=== PATIENT | female | born 1970 | race African-American/Black ===

== ENCOUNTER 2016-12-18 22:45 | Emergency (ER) | payer BC ==
[~2016-12-18] VITALS: Ht 147.3 cm; Wt 103.0 kg
[2016-12-18 23:30] VITALS: BP 144/64
[2016-12-18] MEDS ORDERED: BENZ100C PO (23:53)
[2016-12-18] MEDS ORDERED: PRED20TA PO (23:53)
[2016-12-18] MEDS: IPRATRPIUM/ALBUTEROL 0.5/2.5MG 3 ML NEBU. NEB ONE (23:53)
[2016-12-18] MEDS ORDERED: AZIT250T PO (23:53)
[2016-12-18] MEDS ORDERED: PROAIR HFA8.5 GM INH (23:53)
--- NOTE | 2016-12-18 23:54 | PHYS DOC ---
Past Medical History Past Medical History: Diabetes-Type II, Hypertension, Hyperthyroid Past Surgical History: Cholecystectomy, , Tubal ligation Alcohol Use: Rarely Drug Use: None Adult General Chief Complaint Chief Complaint: Congestion HPI HPI Patient is a 46 year old female presents to the emergency department stating that she's been having cough and congestion for the last 2 days with upper chest discomfort with coughing. She also states that she's been nauseated and vomiting however she states that that is been occurring after she's been coughing as well. Patient does state that she feels like she could vomited this time. Patient denies any fever, chills. Patient states that she is also been having some sinus pressure in which she used a friend's Nasacort. Patient states the sinus pressure is gone at this point in time. Patient also states that she had drunk some soup and states that she had vomited it up. Review of Systems Review of Systems Constitutional: Denies fever or chills [] Eyes: Denies change in visual acuity, redness, or eye pain [] HENT: Nasal congestion denies sore throat Respiratory: Cough denies shortness of breath Cardiovascular: No additional information not addressed in HPI [] GI: Denies abdominal pain, bloody stools or diarrhea. Patient complaint of nausea vomiting : Denies dysuria or hematuria [] Musculoskeletal: Denies back pain or joint pain [] Integument: Denies rash or skin lesions [] Neurologic: Denies headache, focal weakness or sensory changes [] Endocrine: Denies polyuria or polydipsia [] Current Medications Current Medications Current Medications Medications (Trade) Dose Ordered Sig/Amelia Start Time Stop Time Status Last Admin Dose Admin Albuterol/ Ipratropium (Duoneb) 3 ml 1X ONCE 12/19/16 00:00 12/19/16 00:01 DC 12/18/16 23:53 3 ML Ibuprofen (Motrin) 800 mg 1X ONCE 12/19/16 00:15 12/19/16 00:16 DC Ondansetron HCl (Zofran Odt) 4 mg 1X ONCE 12/19/16 00:15 12/19/16 00:16 DC Allergies Allergies Allergies Coded Allergies Type Severity Reaction Last Updated Verified hydromorphone Allergy Intermediate 12/18/16 Yes morphine Allergy Intermediate 12/18/16 Yes Physical Exam Physical Exam Constitutional: Well developed, well nourished, no acute distress, non-toxic appearance. [] HENT: Normocephalic, atraumatic, bilateral external ears normal, oropharynx moist, no oral exudates, nose normal. [] Eyes: PERRLA, EOMI, conjunctiva normal, no discharge. [] Neck: Normal range of motion, no tenderness, supple, no stridor. [] Cardiovascular:Heart rate regular rhythm, no murmur [] Lungs & Thorax: Bilateral breath sounds occasional wheezes noted on the right upper anterior chest. Abdomen: Bowel sounds normal, soft, no tenderness, no masses, no pulsatile masses. [] Skin: Warm, dry, no erythema, no rash. [] Back: No tenderness, no CVA tenderness. [] Extremities: No tenderness, no cyanosis, no clubbing, ROM intact, no edema. [] Neurologic: Alert and oriented X 3, normal motor function, normal sensory function, no focal deficits noted. [] Psychologic: Affect normal, judgement normal, mood normal. [] Current Patient Data Vital Signs Vital Signs Date Time Temp Pulse Resp B/P (MAP) Pulse Ox O2 Delivery O2 Flow Rate FiO2 12/18/16 23:53 97 Room Air 12/18/16 23:30 98.1 81 20 98.1 EKG EKG [] Radiology/Procedures Radiology/Procedures [] Course & Med Decision Making Course & Med Decision Making Pertinent Labs and Imaging studies reviewed. (See chart for details) Patient will be provided with a DuoNeb treatment here in the emergency department. Patient states she feels like she is breathing a little better. She has decrease coughing noted in the emergency department. She is provided with Zofran and ibuprofen. She'll be discharged home with Tessalon Perles, pro-air, steroids, and an antibiotic, Zithromax. She'll be discharged home with recommendations for plenty of fluids. She may take use next DM to help with the cough and congestion as well. Patient will be discharged home in stable condition with signs and symptoms to return back to the emergency department. All questions and concerns have been answered at patient's bedside. Patient will be provided with a work note for 2 days. Dragon Disclaimer Dragon Disclaimer This electronic medical record was generated, in whole or in part, using a voice recognition dictation system. Departure Departure Impression: Primary Impression: Upper respiratory infection Disposition: HOME, SELF-CARE Condition: STABLE Referrals: UNKNOWN PCP NAME (PCP) Patient Instructions: Upper Respiratory Infection, Adult, Izzt-mr-Ynun Additional Instructions: Activity as tolerated. Medication as prescribed. Tylenol or ibuprofen for fever chills or generalized body aches and discomfort. Sudafed and Mucinex DM may be taken [id number] to help with nasal congestion and cough. Drink plenty of fluids. Follow-up with her primary care physician next 3-5 days. Return back to emergency prior signs symptoms of become worse. Scripts Azithromycin (ZITHROMAX) 250 Mg Tablet 250 MG PO DAILY for ANTI-BIOTIC, #6 TAB 0 Refills Take 2 tablets today then 1 tablet daily until gone Prov: ISIDRO TAFOYA APRN 12/18/16 Benzonatate (TESSALON PERLE) 100 Mg Capsule 1 CAP PO TID, #30 CAP Prov: ISIDRO TAFOYA APRN 12/18/16 Albuterol Sulfate (PROAIR HFA INHALER) 8.5 Gm Hfa.aer.ad 1 PUFF INH PRN Q6HRS Y for SHORTNESS OF BREATH, #1 INHALER 0 Refills Prov: ISIDRO TAFOYA APRN 12/18/16 Prednisone (PREDNISONE) 20 Mg Tablet 40 MG PO DAILY for 7 Days, #14 TAB Prov: ISIDRO TAFOYA APRN 12/18/16 Problem Qualifiers Primary Impression: Upper respiratory infection URI type: unspecified URI Qualified Codes: J06.9 - Acute upper respiratory infection, unspecified ISIDRO TAFOYA APRN Dec 18, 2016 23:54
[2016-12-19] MEDS: IBUPROFEN 800 MG TABLET. PO ONE (00:19)
[2016-12-19] MEDS: ONDANSETRON ODT 4 MG TAB.RAPDIS. PO ONE (00:19)
== END 2016-12-19 00:30 | disposition home or self-care (01) ==
LOC: ER 22:45
DX: J06.9 Acute upper respiratory infection, unspecified (principal); E11.9 Type 2 diabetes mellitus without complications; I10 Essential (primary) hypertension; E05.90 Thyrotoxicosis, unspecified without thyrotoxic crisis or storm; Z90.49 Acquired absence of other specified parts of digestive tract; Z88.5 Allergy status to narcotic agent
CPT/HCPCS: 94640; 99283; J7620; Q0162

== ENCOUNTER 2017-08-05 21:47 | Emergency (ER) | payer OTHER, BC ==
[2017-08-05 22:55] LABS: ADD MAN DIFF? NO; BASO # 0.1 x10^3/uL (0.0-0.2); BASO % 1 % (0-3); EOS # 0.2 x10^3/uL (0.0-0.7); EOS % 2 % (0-3); HEMATOCRIT 39.8 % (36.0-47.0); HEMOGLOBIN 13.6 g/dL (12.0-15.5); LYMPH # 1.7 x10^3/uL (1.0-4.8); LYMPH % 19 % (24-48); MEAN CORPUSCULAR HEMOGLOBIN 30 pg (25-35); MEAN CORPUSCULAR HGB CONC 34 g/dL (31-37); MEAN CORPUSCULAR VOLUME 88 fL (79-100); MONO # 0.5 x10^3/uL (0.0-1.1); MONO % 6 % (0-9); NEUT # 6.2 x10^3uL (1.8-7.7); NEUT % 72 % (31-73); PLATELET COUNT 219 x10^3/uL (140-400); RED BLOOD COUNT 4.51 x10^6/uL (3.50-5.40); RED CELL DISTRIBUTION WIDTH 13.3 % (11.5-14.5); WHITE BLOOD COUNT 8.6 x10^3/uL (4.0-11.0)
[2017-08-05] MEDS: IV NORMAL SALINE 1000ML BAG 1,000 ML IV (23:00)
[2017-08-05 23:04] LABS: INR 1.1 (0.8-1.1); PROTHROMBIN TIME PATIENT 13.2 SEC (11.7-14.0)
[2017-08-05 23:08] LABS: ANION GAP 7 (6-14); BLOOD UREA NITROGEN 16 mg/dL (7-20); BUN/CREATININE RATIO 18 (6-20); CALCIUM 8.9 mg/dL (8.5-10.1); CARBON DIOXIDE 28 mmol/L (21-32); CHLORIDE 100 mmol/L (98-107); CREATININE 0.9 mg/dL (0.6-1.0); GFR 81.2; GLUCOSE 123 mg/dL (70-99); POTASSIUM 3.8 mmol/L (3.5-5.1); SODIUM 135 mmol/L (136-145)
[2017-08-05] MEDS: diphenhydrAMINE 50 MG/ML VIAL IVP (23:12)
[2017-08-05] MEDS: PROCHLORPERAZINE 10 MG/2 ML VIAL. IV (23:12)
[2017-08-05 23:14] LABS: ALBUMIN 3.7 g/dL (3.4-5.0); ALBUMIN/GLOBULIN RATIO 0.9 (1.0-1.7); ALK PHOS 74 U/L (46-116); ALT (SGPT) 25 U/L (14-59); AST (SGOT) 18 U/L (15-37); MAGNESIUM 1.9 mg/dL (1.8-2.4); TOTAL BILIRUBIN 0.3 mg/dL (0.2-1.0); TOTAL PROTEIN 7.9 g/dL (6.4-8.2)
[2017-08-05 23:20] LABS: THYROID STIM HORMONE (TSH) 1.682 uIU/mL (0.358-3.74); TROPONINI < 0.017 ng/mL (0.000-0.055)
[2017-08-05 23:23] LABS: NT-PRO BNP 16 pg/mL (0-124)
[2017-08-05 23:23] LABS: CKMB INDEX 0.9 % (0-4); CKMB MASS 1.8 ng/mL (0.0-3.6); CREATINE KINASE 197 U/L (26-192)
[2017-08-05 23:58] LABS: BILIRUBIN,URINE NEGATIVE (NEG); CLARITY,URINE CLEAR; COLOR,URINE YELLOW; GLUCOSE,URINE NEGATIVE (NEG); NITRITE,URINE NEGATIVE (NEG); PH,URINE 5.5; PROTEIN,URINE NEGATIVE (NEG-TRACE); UROBILINOGEN,URINE 0.2 mg/dL (0.2 mg/dL)
[2017-08-06 00:05] LABS: BARBITURATES NEG (NEG); BENZODIAZEPINES NEG (NEG); CANNABINOIDS NEG (NEG); COCAINE NEG (NEG); METHADONE NEG (NEG); OPIATES NEG (NEG); PHENCYCLIDINE NEG (NEG)
[2017-08-06 00:07] LABS: BACTERIA,URINE MANY /HPF (0-FEW); RBC,URINE OCC /HPF (0-2); WBC,URINE 20-40 /HPF (0-4)
[2017-08-06 00:08] LABS: SQUAMOUS EPITHELIAL CELL,UR MANY /LPF
[2017-08-06 00:13] LABS: AMPHETAMINE/METHAMPHETAMINE NEG (NEG); ETHANOL, URINE NEG (NEG)
== END 2017-08-06 01:07 | disposition home or self-care (01) ==
LOC: ER 08-06 01:07
DX: R42 Dizziness and giddiness (principal); N39.0 Urinary tract infection, site not specified; Z88.5 Allergy status to narcotic agent; E11.9 Type 2 diabetes mellitus without complications; E03.9 Hypothyroidism, unspecified; E78.00 Pure hypercholesterolemia, unspecified; I10 Essential (primary) hypertension; Z98.51 Tubal ligation status; Z90.49 Acquired absence of other specified parts of digestive tract
CPT/HCPCS: 36415; 71045; 80053; 80307; 81001; 82553; 83735; 83880; 84443; 84484; 85025; 85610; 87086; 93005; 96374; 96375; 99285-25; J0780; J1200; J7030

== ENCOUNTER 2017-10-19 07:50 | Emergency (ER) | payer OTHER ==
[2017-10-19 09:23] LABS: ADD MAN DIFF? NO
[2017-10-19] MEDS: ONDANSETRON PF 4 MG/2 ML VIAL. IV (09:26)
[2017-10-19] MEDS: LIDO:MAALOX 1:1 20 ML SINGLE DOSE. SWSW (09:27)
[2017-10-19 09:28] LABS: BASO # 0.1 x10^3/uL (0.0-0.2); BASO % 1 % (0-3); EOS # 0.2 x10^3/uL (0.0-0.7); EOS % 2 % (0-3); HEMATOCRIT 38.7 % (36.0-47.0); HEMOGLOBIN 13.2 g/dL (12.0-15.5); LYMPH # 1.4 x10^3/uL (1.0-4.8); LYMPH % 16 % (24-48); MEAN CORPUSCULAR HEMOGLOBIN 30 pg (25-35); MEAN CORPUSCULAR HGB CONC 34 g/dL (31-37); MEAN CORPUSCULAR VOLUME 88 fL (79-100); MONO # 0.6 x10^3/uL (0.0-1.1); MONO % 7 % (0-9); NEUT # 6.3 x10^3uL (1.8-7.7); NEUT % 74 % (31-73); PLATELET COUNT 209 x10^3/uL (140-400); RED CELL DISTRIBUTION WIDTH 13.6 % (11.5-14.5); WHITE BLOOD COUNT 8.6 x10^3/uL (4.0-11.0)
[2017-10-19] MEDS: KETOROLAC 30 MG/ML INJ. IV (09:29)
[2017-10-19 09:55] LABS: ANION GAP 4 (6-14); BLOOD UREA NITROGEN 12 mg/dL (7-20); BUN/CREATININE RATIO 13 (6-20); CARBON DIOXIDE 31 mmol/L (21-32); CHLORIDE 102 mmol/L (98-107); CREATININE 0.9 mg/dL (0.6-1.0); GFR 81.2; GLUCOSE 190 mg/dL (70-99); POTASSIUM 3.5 mmol/L (3.5-5.1); SODIUM 137 mmol/L (136-145)
[2017-10-19 10:00] LABS: TROPONINI < 0.017 ng/mL (0.000-0.055)
[2017-10-19 10:00] LABS: ALBUMIN 3.7 g/dL (3.4-5.0); ALBUMIN/GLOBULIN RATIO 0.8 (1.0-1.7); ALK PHOS 69 U/L (46-116); ALT (SGPT) 22 U/L (14-59); AST (SGOT) 20 U/L (15-37); CREATINE KINASE 239 U/L (26-192); DIRECT BILIRUBIN 0.1 mg/dL (0.0-0.2); LIPASE 267 U/L (73-393); TOTAL BILIRUBIN 0.2 mg/dL (0.2-1.0); TOTAL PROTEIN 8.3 g/dL (6.4-8.2)
[2017-10-19 10:06] LABS: THYROID STIM HORMONE (TSH) 4.546 uIU/mL (0.358-3.74)
[2017-10-19 10:33] LABS: BILIRUBIN,URINE NEGATIVE (NEG); CLARITY,URINE CLEAR; COLOR,URINE YELLOW; GLUCOSE,URINE NEGATIVE (NEG); NITRITE,URINE NEGATIVE (NEG); PH,URINE 5.5; PROTEIN,URINE NEGATIVE (NEG-TRACE); UROBILINOGEN,URINE 0.2 mg/dL (0.2 mg/dL)
[2017-10-19 10:37] LABS: BARBITURATES NEG (NEG); BENZODIAZEPINES NEG (NEG); CANNABINOIDS NEG (NEG); COCAINE NEG (NEG); METHADONE NEG (NEG); OPIATES NEG (NEG); PHENCYCLIDINE NEG (NEG)
[2017-10-19 10:49] LABS: AMPHETAMINE/METHAMPHETAMINE NEG (NEG); ETHANOL, URINE NEG (NEG)
[2017-10-19 11:25] LABS: BACTERIA,URINE FEW /HPF (0-FEW); SQUAMOUS EPITHELIAL CELL,UR FEW /LPF
[2017-10-19] MEDS: diphenhydrAMINE 50 MG/ML VIAL IVP (11:27)
[2017-10-19] MEDS: PROCHLORPERAZINE 10 MG/2 ML VIAL. IV (11:28)
== END 2017-10-19 12:35 | disposition home or self-care (01) ==
LOC: ER 12:35
DX: R07.89 Other chest pain (principal); R10.13 Epigastric pain; R51 Headache; E78.00 Pure hypercholesterolemia, unspecified; E03.9 Hypothyroidism, unspecified; I10 Essential (primary) hypertension; E11.9 Type 2 diabetes mellitus without complications; Z90.49 Acquired absence of other specified parts of digestive tract; Z98.51 Tubal ligation status; Z88.5 Allergy status to narcotic agent
CPT/HCPCS: 36415; 71046; 80053; 80076; 80307; 81001; 82550; 83690; 84443; 84484; 85025; 85379; 93005; 96374; 96375; 99285-25; J0780; J1200; J1885; J2405

== ENCOUNTER 2019-12-26 08:27 | Emergency (ER) | payer BC, OTHER ==
[~2019-12-26] VITALS: Ht 149.9 cm; Wt 100.0 kg
[~2019-12-26 08:27] MED LIST: ALBU2.5V8 INH; AZIT250T PO; BENZ100C PO; PRED20TA PO; SULF1TAB23 PO
[2019-12-26 08:47] VITALS: BP 170/82
--- NOTE | 2019-12-26 09:14 | RAD ---
EXAM: CHEST 1 VIEW History: Cough COMPARISON: 10/19/2017 TECHNIQUE: Single portable radiograph of the chest FINDINGS: The cardiac silhouette is unremarkable. The lungs are clear bilaterally. The costophrenic sulci are clear and well demarcated. IMPRESSION: No radiographic evidence of an acute cardiopulmonary process. Electronically signed by: Reilly Schmidt MD (12/26/2019 9:11 AM) [id number]
[2019-12-26] MEDS ORDERED: AZIT500T4 PO (09:20)
[2019-12-26] MEDS ORDERED: GUAI-108 PO (09:20)
[2019-12-26] MEDS ORDERED: FLUT9.9S NS (09:20)
--- NOTE | 2019-12-26 09:20 | PHYS DOC ---
Past Medical History Past Medical History: Diabetes-Type II, Hypertension, Hypothyroid Past Surgical History: , Other Smoking Status: Never Smoker Alcohol Use: Rarely Drug Use: None General Adult EDM: Chief Complaint: COUGH HPI: HPI: History obtained from the patient. Patient is a 49-year-old female with past medical history significant for hypertension, hypothyroidism, byy-zsqvgyw-pexdaapnu diabetes who presents with chief complaint of cough and general fatigue. Patient states he has had a dry cough over the past several days. She notes associated mild headache with sinus pressure. Denies any chest pain except for when she coughs. Denies shortness of breath. Denies swelling in the extremities. Denies any history of exertional chest pain. Denies any objective fevers. States she was seen in urgent care facility several days ago and has been tested for COVID and told she was negative. She states she has been trying Tessalon Perles at home with minimal relief. She states that she tried to follow-up with her primary care physician today but they stated that they are not seeing any actively ill patients at this time. Patient states her biggest complaint is helping her cough. Eyes any recent antibiotics. Denies any recent hospitalizations. Denies any recent travel or known exposure to coronavirus. Does not use oxygen at home. Has been eating and drinking well otherwise. No other complaints. Review of Systems: Review of Systems: Constitutional: Positive for general fatigue Eyes: Denies change in visual acuity. [] HENT: Denies nasal congestion or sore throat. [] Respiratory: Positive for cough Cardiovascular: Denies chest pain or edema. [] GI: Denies abdominal pain, nausea, vomiting, bloody stools or diarrhea. [] : Denies dysuria. [] Musculoskeletal: Denies back pain or joint pain. [] Integument: Denies rash. [] Neurologic: Denies headache, focal weakness or sensory changes. [] Endocrine: Denies polyuria or polydipsia. [] Lymphatic: Denies swollen glands. [] Psychiatric: Denies depression or anxiety. [] Heart Score: Risk Factors: Risk Factors: DM, Current or recent (<one month) smoker, HTN, HLP, family history of CAD, obesity. Risk Scores: Score 0 - 3: 2.5% MACE over next 6 weeks - Discharge Home Score 4 - 6: 20.3% MACE over next 6 weeks - Admit for Clinical Observation Score 7 - 10: 72.7% MACE over next 6 weeks - Early Invasive Strategies Allergies: Allergies: Allergies Coded Allergies Type Severity Reaction Last Updated Verified hydromorphone Allergy Intermediate 12/18/16 Yes morphine Allergy Intermediate 12/18/16 Yes Physical Exam: PE: Constitutional: Well developed, well nourished, no acute distress, non-toxic appearance. [] HENT: Normocephalic, atraumatic, bilateral external ears normal, oropharynx moist, no oral exudates, nose normal. [] Eyes: PERRLA, EOMI, conjunctiva normal, no discharge. [] Neck: Normal range of motion, no tenderness, supple, no stridor. [] Cardiovascular:Heart rate regular rhythm, no murmur [] Lungs & Thorax: Bilateral breath sounds clear to auscultation [] Abdomen: soft, no tenderness, no masses, no pulsatile masses. [] Skin: Warm, dry, no erythema, no rash. [] Back: No tenderness, no CVA tenderness. [] Extremities: No tenderness, no cyanosis, no clubbing, ROM intact, no edema. [] Neurologic: Alert and oriented X 3, normal motor function, normal sensory function, no focal deficits noted. [] Psychologic: Affect normal, judgement normal, mood normal. [] Current Patient Data: Vital Signs: Vital Signs Date Time Temp Pulse Resp B/P (MAP) Pulse Ox O2 Delivery O2 Flow Rate FiO2 12/26/19 08:47 98.2 84 18 170/82 (111) 99 Room Air 98.2 EKG: EKG: [] Radiology/Procedures: Radiology/Procedures: [facility] [address] [place] [address] IMAGING REPORT Signed PATIENT: MONA GRAHAM ACCOUNT: [id number] : 1970 LOCATION: ER AGE: 49 SEX: F EXAM STATUS: PRE ER ORD. PHYSICIAN: ALYSHA NASH DO REASON: cough PROCEDURE: CHEST AP ONLY EXAM: CHEST 1 VIEW History: Cough COMPARISON: 10/19/2017 TECHNIQUE: Single portable radiograph of the chest FINDINGS: The cardiac silhouette is unremarkable. The lungs are clear bilaterally. The costophrenic sulci are clear and well demarcated. IMPRESSION: No radiographic evidence of an acute cardiopulmonary process. Electronically signed by: Reilly Schmidt MD (12/26/2019 9:11 AM) [id number] DICTATED and SIGNED BY: REILLY SCHMIDT MD DATE: 12/26/19 0911 [] Course & Med Decision Making: Course & Med Decision Making Pertinent Labs and Imaging studies reviewed. (See chart for details) [] Patient is a well-appearing 49-year-old female who presents with chief complaint of cough and general malaise. Initial vital signs unremarkable. Lung sounds are clear bilaterally. Chest x-ray without focal consolidation. I do feel laboratory Naus this is indicated at this time. She continues to deny any exertional chest pain or shortness of breath. Her symptoms are most likely infectious in nature. Given the chronicity of her symptoms azithromycin will be prescribed. Flonase and Mucinex also be prescribed. She was instructed to follow-up with her primary care physician. She was ambulated and showed no signs of hypoxia. Return precautions discussed and understood. Stable for discharge home. COVID-19 CRITERIA: The patient was evaluated during the global COVID-19 pandemic, and that diagnosis was suspected/considered upon their initial presentation. Their evaluation, treatment and testing was consistent with current guidelines for patients who present with complaints or symptoms that may be related to COVID-19. Malka Disclaimer: Malka Disclaimer: This electronic medical record was generated, in whole or in part, using a voice recognition dictation system. Departure Departure Impression: Primary Impression: Cough Additional Impression: Fatigue Qualified Codes: R53.83 - Other fatigue Disposition: 01 DC HOME SELF CARE/HOMELESS Condition: STABLE Referrals: UNKNOWN PCP NAME (PCP) Patient Instructions: Acute Bronchitis Additional Instructions: COVID-19. It is an infection caused by a new type of coronavirus. COVID-19 will cause cold-like or mild flu symptoms in most. It can cause more severe symptoms like problems breathing in some. There is no treatment for COVID-19. The body will clear the infection over time. Self-care will help to ease discomfort. Steps to Take: Self-Care Rest as needed. Healthy habits may help you feel better. Steps include: Choose healthy foods including fruits and vegetables. Drink water throughout the day. Get plenty of sleep each night. If you smoke, try to quit. It may ease breathing. Avoid alcohol. Keep Others Healthy The virus can spread to others. Droplets are released every time you sneeze or cough. The droplets can get into the mouth, nose, or eyes of people near you and lead to infection. To lower the chances of spreading COVID-19 to others: Stay at home until your doctor has said it is safe to leave. If you tested positive this will mean staying isolated until both of the following are true: At least 7 days have passed since the start of illness. You are free of fever for at least 72 hours without the use of medicine. During this time: - Avoid public areas, events, or transportation. Do not return to work or school until your doctor has said it is safe to do so. - Call ahead if you need to go to a medical center. Let them know you may have COVID-19. It will help them guide you where to go. They may also ask you to wear a facemask when you come to the office. - If you call for emergency medical services, let them know you may have COVID- 19. While at home: - Try to avoid close contact with others. Stay about 6 feet away. - If possible, spend most of your time in a separate room from others. - Use a face mask if you will be in close contact with others such as sharing a room or vehicle. - Have someone wipe down common surfaces in the home. Use household human resources department supervisor every day on areas like doorknobs, counters, or sinks. - Cough or sneeze into a tissue. Throw the tissue away right after use. If a tissue is not available, cough or sneeze into your elbow. - Wash your hands often. Wash them after sneezing or coughing. Use soap and water and wash for at least 20 seconds. Alcohol based hand reed cleaner can be used if soap and water is not available. - Do not prepare food for others. Avoid sharing personal items like forks, spoons, or toothbrushes. - Avoid close contact with pets while you are sick. There is no evidence of the virus passing to pets. This is a safety step until more is known about this virus. Isolation can be frustrating. Social interaction can help. Keep in touch with friends and family through phone and tech options. You can still interact with others in your home, just keep a safe distance of about 6 feet. Follow-up: Your doctors office will check in with you to see if there are any changes in your health. You may be asked to keep track of symptoms to share with them. They will also let you know when you are clear to be in public again. Problems to Look Out For: Contact your doctor if your recovery is not going as you expect. Get emergency care if you have problems such as: - Trouble breathing - Nonstop chest pain or pressure - Changes in awareness, confusion, or problems waking - Lips or face have bluish color - Worsening of symptoms If you think you have an emergency, call for emergency medical services right away. As taken from [facility] Scripts Guaifenesin/Dextromethorphan (MUCINEX DM ER 600-30 MG TABLET) 1 Each Tab.er.12h 1 TAB PO PRN BID PRN for cough and congestion for 5 Days, #10 TAB 0 Refills Prov: ALYSHA NASH DO 12/26/19 Fluticasone Propionate (Flonase Allergy Relief) 9.9 Ml [place].susp 2 SPRAYS NS DAILY for 14 Days, #1 BOTTLE Prov: ALYSHA NASH DO 12/26/19 Azithromycin (AZITHROMYCIN TABLET) 500 Mg Tablet 1 TAB PO DAILY for 5 Days, #5 TAB 0 Refills Prov: ALYSHA NASH DO 12/26/19 ALYSHA NASH DO Dec 26, 2019 09:20
== END 2019-12-26 09:32 | disposition home or self-care (01) ==
LOC: ER 08:27
DX: R05 Cough (principal); R53.83 Other fatigue; R51.9 Headache, unspecified; E11.9 Type 2 diabetes mellitus without complications; I10 Essential (primary) hypertension; E03.9 Hypothyroidism, unspecified; Z98.890 Other specified postprocedural states; Z88.5 Allergy status to narcotic agent; Z88.6 Allergy status to analgesic agent
CPT/HCPCS: 71045; 99283

== ENCOUNTER 2021-07-02 12:50 | Emergency (ER) | payer BC ==
[~2021-07-02] VITALS: Ht 160 cm; Wt 102.5 kg
[~2021-07-02 12:50] MED LIST changes: +AZIT500T4 PO; +FLUT9.9S NS; +GUAI-108 PO
[2021-07-02] MEDS ORDERED: IPRATRPIUM/ALBUTEROL 0.5/2.5MG 3 ML NEBU. NEB ONE ×2 (13:45→14:30)
[2021-07-02 14:27] LABS: INFLUENZA A PATIENT NEGATIVE (NEGATIVE); INFLUENZA B PATIENT NEGATIVE (NEGATIVE)
--- NOTE | 2021-07-02 14:39 | PHYS DOC ---
Past Medical History Past Medical History: Diabetes-Type II, Hypertension, Hypothyroid Additional Past Medical Histor: seasonal allergies Past Surgical History: Smoking Status: Unknown if ever smoked Alcohol Use: None Drug Use: None General Adult EDM: Chief Complaint: COUGH HPI: HPI: Patient is a 50 year old female who presents with 1 week history of congestion, cough, and wheezing. 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 She did an at home Covid test which was negative. When she returned to work, she was still not feeling well and was sent home again and advised to present to seek medical attention. Patient denies fever, chills, sputum production and sore throat. Review of Systems: Review of Systems: Constitutional: Denies fever, chills or generalized weakness Eyes: Denies change in visual acuity, visual field deficits or discharge HENT: See HPI Respiratory: See HPI Cardiovascular: Denies chest pain, palpitations or edema GI: Denies abdominal pain, nausea, vomiting, bloody stools or diarrhea : Denies dysuria or hematuria Musculoskeletal: Denies back pain or joint pain Integument: Denies rash or other skin lesion Neurologic: Denies headache, focal weakness or sensory changes Heart Score: C/O Chest Pain: No Current Medications: Current Medications Medications (Trade) Dose Ordered Sig/Amelia Route PRN Reason Start Time Stop Time Status Last Admin Dose Admin Albuterol/ Ipratropium (Duoneb) 3 ml 1X ONCE NEB 07/02/21 13:45 07/02/21 13:46 DC 07/02/21 13:50 Albuterol/ Ipratropium (Duoneb) 3 ml 1X ONCE NEB 07/02/21 14:30 07/02/21 14:31 DC 07/02/21 14:34 Ketorolac Tromethamine (Toradol 30mg Vial) 30 mg 1X ONCE IM 07/02/21 15:00 07/02/21 15:01 DC 07/02/21 15:07 Allergies: Allergies: Allergies Coded Allergies Type Severity Reaction Last Updated Verified hydromorphone Allergy Intermediate 12/18/16 Yes morphine Allergy Intermediate 12/18/16 Yes Physical Exam: PE: Constitutional: Obese, no acute distress, non-toxic appearance. HENT: Normocephalic, atraumatic, bilateral external ears normal, oropharynx moist, no oral exudates, bilateral turbinates erythematous. Eyes: EOMI, conjunctiva normal, no discharge. Neck: Normal range of motion, no tenderness, supple, no stridor. Cardiovascular: Heart regular rate and rhythm. No apparent murmurs, rubs or gallops. Lungs & Thorax: Equal thoracic expansion, diffuse inspiratory and expiratory wheezing, no crackles or rhonchi. Skin: Warm, dry, no erythema, no rash. Extremities: No cyanosis, no clubbing, ROM intact, no edema. Neurologic: Alert and oriented x4, normal motor function, normal sensory function, no focal deficits noted. Current Patient Data: Labs: Laboratory Tests Test 07/02/21 14:08 Influenza Type A Antigen Negative (NEGATIVE) Influenza Type B Antigen Negative (NEGATIVE) SARS-CoV-2 Antigen (Rapid) Negative (NEGATIVE) Vital Signs: Vital Signs Date Time Temp Pulse Resp B/P (MAP) Pulse Ox O2 Delivery O2 Flow Rate FiO2 07/02/21 16:06 84 16 97 Room Air 07/02/21 15:21 104 20 158/78 (104) 98 Room Air 07/02/21 14:34 97 Room Air 07/02/21 13:51 97 Nasal Cannula 07/02/21 13:00 98.2 65 20 195/86 (122) 95 Room Air 98.2 Radiology/Procedures: Radiology/Procedures: PROCEDURE: WRIST 3V RIGHT The exam performed: X-ray right elbow and right wrist. HISTORY: Pain with guarding. DATE OF SERVICE: 07/02/2021. COMPARISON: None available FINDINGS: AP, lateral and oblique view of the right elbow is obtained. There is a supracondylar fracture of the right humerus with diffuse soft tissue swelling. There is suspected elbow joint effusion. AP lateral and oblique views of the right wrist demonstrates normal alignment. There is no acute fracture or dislocation. No soft tissue swelling or foreign body seen. IMPRESSION: Nondisplaced supracondylar fracture right humerus. No acute abnormality seen in the right wrist. Electronically signed by: Leyla Manzo MD (07/02/2021 2:43 PM) [facility] Course & Med Decision Making: Course & Med Decision Making Pertinent Labs and Imaging studies reviewed. (See chart for details) She is a 50-year-old female with 1 week history of congestion, cough and wheezing. Patient was given 2 DuoNeb treatments in the department with improvement in wheezing. Chest x-ray shows changes that could be due to bronchitis. It is likely patient has viral bronchitis with wheezing. Patient is informed of findings and treatment plan. Return precautions were provided. Work note was provided. Patient understands and is agreeable to discharge plan. Dragon Disclaimer: Dragon Disclaimer: This electronic medical record was generated, in whole or in part, using a voice recognition dictation system. Departure Departure Impression: Primary Impression: Bronchitis with acute wheezing Disposition: HOME / SELF CARE / HOMELESS Condition: IMPROVED Referrals: NO PCP (PCP) Patient Instructions: Acute Bronchitis, [id number] Additional Instructions: EMERGENCY DEPARTMENT GENERAL DISCHARGE INSTRUCTIONS Thank you for coming to [facility] Emergency Department (ED) today and trusting us with you care. We trust that you had a positive experience in our Emergency Department. If you wish to speak to the department management, you may call the director at . YOUR FOLLOW UP INSTRUCTIONS ARE FOLLOWS: 1. Follow up with your primary care doctor. If you do not have a primary doctor, please ask for a resource list of physicians or clinics that may be able to assist you with follow up care. 2. The emergency provider has interpreted your imaging studies, if any were ordered. The radiology payroll accounting specialist also reviewed them. If there is a change in the findings, you will be notified in 48 hours when at all possible. 3. If a lab test or culture has been done, your results will be reviewed and you will be notified if you need a change in treatment. 4. Follow instructions verbalized to you and refer to the printouts if needed. ADDITIONAL INSTRUCTIONS AND INFORMATION: 1. Your care today has been supervised by a physician who is specially trained in emergency care. Many problems require more than one evaluation for a complete diagnosis and treatment. We recommend that you schedule your follow up appointment as recommended to ensure complete treatment of you illness or injury. If you are unable to obtain follow up care and continue to have a problem, or if your condition worsens, we recommend that you return to the ED. 2. We are not able to safely determine your condition over the phone nor are we able to give sound medical advice over the phone. For these safety reasons, if you call for medical advice we will ask you to come to the ED for further evaluation. 3. If you have any questions regarding these discharge instructions please call the ED at . SAFETY INFORMATION: In the interest of safety, wellness, and injury prevention; we encourage you to wear your seat belt, if you smoke; quite smoking, and we encourage family to use a protective helmet for bicycling and other sporting events that present an increased risk for head injury. IF YOUR SYMPTOMS WORSEN OR NEW SYMPTOMS DEVELOP, OR YOU HAVE CONCERNS ABOUT YOUR CONDITION; OR IF YOUR CONDITION WORSENS WHILE YOU ARE WAITING FOR YOUR FOLLOW UP APPOINTMENT; EITHER CONTACT YOUR PRIMARY CARE DOCTOR, THE PHYSICIAN WHOSE NAME AND NUMBER YOU WERE GIVEN, OR RETURN TO THE ED IMMEDIATELY. Scripts Benzonatate (BENZONATATE) 100 Mg Capsule 1-2 CAP PO HS, #30 CAP Prov: LILY GRACIA 07/02/21 Guaifenesin (GUAIFENESIN) 400 Mg Tablet 1 TAB PO TID for cough for 7 Days, #21 TAB 0 Refills Prov: LILY GRACIA 07/02/21 Albuterol Sulfate (PROAIR HFA INHALER) 8.5 Gm Hfa.aer.ad 2 PUFF IH PRN Q4-6HRS PRN for wheezing, #1 INHALER 0 Refills Prov: LILY GRACIA 07/02/21 LILY GRACIA Jul 02, 2021 14:38
--- NOTE | 2021-07-02 14:50 | RAD ---
INDICATION: Reason: wheezing, cough / Spl. Instructions: / History: COMPARISON: December 2019 FINDINGS: Single view of chest obtained. Cardiac mediastinal silhouette is again mildly prominent but likely exaggerated by portable technique . Mild haziness to the bilateral lungs could be from hypoventilatory changes a well-defined region of c onsolidation is not seen. IMPRESSION: * Mild haziness bilateral lungs could be from hypoventilatory changes without a definite new region of consolidation seen. Electronically signed by: Abner Alonzo MD (07/02/2021 2:47 PM) [id number]
[2021-07-02] MEDS ORDERED: KETOROLAC 30 MG/ML VIAL. IM ONE (15:00)
[2021-07-02 15:21] VITALS: BP 158/78
[2021-07-02] MEDS ORDERED: GUAI400T78 PO (16:16)
[2021-07-02] MEDS ORDERED: ALBU2.5V8 IH (16:16)
[2021-07-02] MEDS ORDERED: BENZ-8 PO (16:16)
== END 2021-07-02 16:36 | disposition home or self-care (01) ==
LOC: ER 12:50
DX: J40 Bronchitis, not specified as acute or chronic (principal); Z20.822 Contact with and (suspected) exposure to COVID-19; E11.9 Type 2 diabetes mellitus without complications; E03.9 Hypothyroidism, unspecified; I10 Essential (primary) hypertension; Z88.5 Allergy status to narcotic agent
CPT/HCPCS: 71045; 87428; 94640; 96372; 99285; C9803; J1885; U0003